=== PATIENT | female | born 1970 | race Two or more races ===

== ENCOUNTER 2016-08-25 22:11 | Emergency (ER) | payer BC, MEDICAID ==
[~2016-08-25] VITALS: Ht 162.6 cm; Wt 69.9 kg
[~2016-08-25 22:11] MED LIST: ALIGN4 M1 PO; AUGMENTIN 500-1 EACH ORAL; AZITHROMYCIN250 MG ORAL; CARAFATE1 G1 ORAL; CIPROFLOXACIN500 M2 ORAL; IBUPROFEN600 MG ORAL; NAPROSYN375 M1 ORAL; NKM; NORCO 5-325 TA1 EACH ORAL; NORCO 5-325 TA1 EACH PO; OMEPRAZOLE40 M1 ORAL; PHENAZOPYRIDIN200 MG ORAL; PROMETHAZINE-C118 M1 ORAL; ROBAXIN-750750 MG PO; ROBAXIN500 MG PO
[2016-08-25 22:33] VITALS: BP 101/71
[2016-08-25] MEDS ORDERED: GABAPENTIN100 MG ORAL (22:34)
[2016-08-25] MEDS ORDERED: Norco 5mg/325mg tab ORAL ONE (23:15)
[2016-08-25] MEDS ORDERED: TRAMADOL HCL50 MG ORAL (23:27)
--- NOTE | 2016-08-25 23:28 | Emergency Room Report ---
History of Present Illness General Chief Complaint: Pain Source: Patient Present Illness HPI This is a 45-year-old female with history of chronic back pain. She present she complaining of left ankle pain. She said she was in the supermarket and a martinez here the back of her ankle with a shopping cart. This occurred 8 hours ago. She complaining of pain initially and now getting worse. Going up her back. No fever chills but no nausea vomiting. No relief with Motrin. Pain is 10 out of 10. Allergies: Coded Allergies: No Known Allergies (Unverified , 08/25/16) Patient History Past Medical History: see triage record, old chart reviewed Past Surgical History: other Pertinent Family History: none Social History: Denies: smoking Last Menstrual Period: august 06 Now: No Immunizations: other Reviewed Nursing Documentation: PMH: Agreed, PSxH: Agreed Nursing Documentation-PMH Past Medical History: No History, Except For Hx Cardiac Problems: No - herniated disk Hx Cancer: No Hx Gastrointestinal Problems: Yes - gastritis Hx Neurological Problems: No Review of Systems Eye: Denies: blurred vision, eye pain ENT: Denies: ear pain, nose congestion, throat swelling Respiratory: Denies: cough, shortness of breath Cardiovascular: Denies: chest pain, palpitations Gastrointestinal: Denies: abdominal pain, diarrhea, nausea, vomiting Musculoskeletal: Reports: joint pain, Denies: back pain Skin: Denies: rash Neurological: Denies: headache, numbness Endocrine: Denies: increased thirst, increased urine Hematologic/Lymphatic: Denies: easy bruising All Other Systems: negative except mentioned in HPI Physical Exam Vital Signs Date Time Temp Pulse Resp B/P Pulse Ox O2 Delivery O2 Flow Rate FiO2 08/25/16 22:27 98.8 96 16 101/71 98 Room Air vitals normal Sp02 EP Interpretation: reviewed, normal General Appearance: well appearing, no apparent distress, alert Head: normocephalic, atraumatic Eyes: bilateral eye EOMI, bilateral eye PERRL ENT: hearing grossly normal, normal pharynx Neck: full range of motion, supple, no meningismus Respiratory: chest non-tender, lungs clear, normal breath sounds Cardiovascular #1: regular rate, rhythm, no murmur Gastrointestinal: normal bowel sounds, non tender, no mass, no organomegaly, no bruit, non-distended Musculoskeletal: back normal, gait/station normal, normal range of motion, other - Left ankle: She has mild tenderness over the distal insertion of the Achilles. No rupture. Sensation normal. Full range of motion. Psychiatric: mood/affect normal Skin: warm/dry Procedures Splinting Splinting : Consent: Verbal Pre-Made Type: PAOLA wrap Pre-Proc Neuro Vasc Exam: normal Post-Proc Neuro Vasc Exam: normal Patient Tolerated: Well Complications: None Medical Decision Making Diagnostic Impression: Primary Impression: Achilles tendon sprain Qualified Codes: S86.012A - Strain of left Achilles tendon, initial encounter ER Course She present with tenderness of the Achilles tendon. Clinically no rupture. X- ray negative. We'll discharge home. Other X-Ray Diagnostic Results Other X-Ray Diagnostic Results : X-Ray ordered: Left ankle x-rays # of Views/Limited Vs Complete: 3 View Indication: Pain EP Interpretation: Yes Interpretation: no dislocation, no soft tissue swelling, no fractures, nonspecific bowel gas Impression: No acute disease Interpreting ER Provider: Electronically signed by Abdulaziz Saucedo MD Last Vital Signs Date Time Temp Pulse Resp B/P Pulse Ox O2 Delivery O2 Flow Rate FiO2 08/25/16 22:27 98.8 96 16 101/71 98 Room Air Status: improved Disposition: HOME, SELF-CARE Condition: Stable Scripts Tramadol Hcl* (ULTRAM*) 50 Mg Tablet 50 MG ORAL Q6H Y for For Pain, #15 TAB 0 Refills Prov: ABDULAZIZ SAUCEDO M.D. 08/25/16 Additional Instructions: Ice pack area. Elevated leg. Use crutches as needed. Followup with your DrGerald in 7 days. Return if worse. ABDULAZIZ SAUCEDO M.D. Aug 25, 2016 23:28
[2016-08-25 23:35] VITALS: BP 105/70
--- NOTE | 2016-08-26 09:26 | Diagnostic Imaging Report ---
Indications: Left ankle trauma, pain Technique: 3 views left ankle. Findings: Comparison: None No fracture, dislocation, joint space widening or effusion , surrounding soft tissue swelling/foreign body/gas, or other acute changes are identified. IMPRESSION: No evidence of acute injury to the left ankle.
== END 2016-08-25 23:35 | disposition home or self-care (01) ==
LOC: EMR 23:00
DX: S86.012A Strain of left Achilles tendon, initial encounter (principal); W22.8XXA Striking against or struck by other objects, initial encounter; Y92.512 Supermarket, store or market as the place of occurrence of the external cause
CPT/HCPCS: 29540; 99283

== ENCOUNTER 2017-02-01 22:41 | Emergency (ER) | payer BC, MEDICAID ==
[~2017-02-01] VITALS: Ht 165.1 cm; Wt 69.9 kg
[~2017-02-01 22:41] MED LIST changes: +GABAPENTIN100 MG ORAL; +TRAMADOL HCL50 MG ORAL
[2017-02-01 22:50] VITALS: BP 113/85
[2017-02-01] MEDS ORDERED: TAMIFLU75 MG ORAL (23:09)
[2017-02-01] MEDS ORDERED: IBUPROFEN600 MG ORAL (23:09)
--- NOTE | 2017-02-01 23:09 | Emergency Room Report ---
History of Present Illness General Chief Complaint: Flu Like Symptoms Source: Patient Present Illness HPI Is a 46-year-old female with no significant past medical history. She presents with chief complaint of fever, cough, joint pain, nausea. Onset last night. Took Tylenol but still having fever. No sick contact. Coughing is nonproductive in nature. Pain is 10 out of 10. Allergies: Coded Allergies: No Known Allergies (Unverified , 08/25/16) Patient History Past Medical History: see triage record, old chart reviewed Past Surgical History: other Pertinent Family History: none Social History: Denies: smoking Last Menstrual Period: jan 24 Now: No : 2 Immunizations: other Reviewed Nursing Documentation: PMH: Agreed, PSxH: Agreed Nursing Documentation-PMH Hx Cardiac Problems: No - herniated disk, heart murmur Hx Cancer: No Hx Gastrointestinal Problems: Yes - gastritis Hx Neurological Problems: No Review of Systems Constitutional: Reports: fever Eye: Denies: eye pain, blurred vision ENT: Denies: ear pain, nose congestion, throat swelling Respiratory: Reports: cough, Denies: shortness of breath Cardiovascular: Denies: chest pain, palpitations Gastrointestinal: Denies: abdominal pain, diarrhea, nausea, vomiting Musculoskeletal: Reports: joint pain, Denies: back pain Skin: Denies: rash Neurological: Denies: headache, numbness Endocrine: Denies: increased thirst, increased urine Hematologic/Lymphatic: Denies: easy bruising All Other Systems: negative except mentioned in HPI Physical Exam Vital Signs Date Time Temp Pulse Resp B/P (MAP) Pulse Ox O2 Delivery O2 Flow Rate FiO2 02/01/17 22:45 99.3 92 18 113/85 98 Room Air vital low-grade fever Sp02 EP Interpretation: reviewed, normal General Appearance: well appearing, no apparent distress, alert Head: normocephalic, atraumatic Eyes: bilateral eye PERRL, bilateral eye EOMI ENT: hearing grossly normal, normal pharynx Neck: full range of motion, supple, no meningismus Respiratory: chest non-tender, lungs clear, normal breath sounds Cardiovascular #1: regular rate, rhythm, no murmur Gastrointestinal: normal bowel sounds, non tender, no mass, no organomegaly, no bruit, non-distended Musculoskeletal: back normal, gait/station normal, normal range of motion Psychiatric: mood/affect normal Skin: warm/dry Medical Decision Making Diagnostic Impression: Primary Impression: Influenza ER Course Patient presents with symptoms consistent with influenza. No evidence of sepsis. We'll go ahead and treat since has only been 24 hours. No evidence of pneumonia. We'll discharge home. Last Vital Signs Date Time Temp Pulse Resp B/P (MAP) Pulse Ox O2 Delivery O2 Flow Rate FiO2 02/01/17 22:45 99.3 92 18 113/85 98 Room Air Status: unchanged Disposition: HOME, SELF-CARE Condition: Stable Scripts Oseltamivir Phosphate (Tamiflu) 75 Mg Capsule 75 MG ORAL TWICE A DAY, #10 CAP Prov: ABDULAZIZ HOOD M.D. 02/01/17 Ibuprofen* (MOTRIN*) 600 Mg Tablet 600 MG ORAL THREE TIMES A DAY, #30 TAB 0 Refills Prov: ABDULAZIZ HOOD M.D. 02/01/17 Patient Instructions: INFLUENZA (Adult) Additional Instructions: Rest. Increase fluid. Return if symptom worsen. Follow up with your DrGerald in 5- 7 days. ABDULAZIZ HOOD M.D. Feb 01, 2017 23:09
[2017-02-01 23:19] VITALS: BP 113/85
[2017-02-01] MEDS ORDERED: GUAIFENESIN-CO118 M1 ORAL (23:22)
== END 2017-02-01 23:23 | disposition home or self-care (01) ==
LOC: EMR 23:04
DX: J11.1 Influenza due to unidentified influenza virus with other respiratory manifestations (principal)
CPT/HCPCS: 99283

== ENCOUNTER 2017-09-28 10:23 | Emergency (ER) | payer BC, MEDICAID ==
[~2017-09-28] VITALS: Ht 165.1 cm; Wt 69.9 kg
[~2017-09-28 10:23] MED LIST changes: +GUAIFENESIN-CO118 M1 ORAL; +TAMIFLU75 MG ORAL
[2017-09-28] MEDS ORDERED: Lidocaine 2% Visc 15ml soln PO ONE (11:15)
[2017-09-28] MEDS ORDERED: Dicyclomine HCl 10mg/5ml oral soln ORAL ONE (11:15)
[2017-09-28] MEDS ORDERED: Mylanta II UD 30ml ORAL ONE (11:15)
--- NOTE | 2017-09-28 11:15 | Emergency Room Report ---
History of Present Illness General Chief Complaint: Abdominal Pain Source: Patient Present Illness HPI This patient c/o fairly severe epigastric pain about 24 hours ago for about 3-4 hours, sharp, severe, constant, resolved. Recurred again about eight hours ago. A/w nausea. No vomiting, no fever, one episode loose bm. No cp, sob, fever, trauma. No dysuria, urgency, hematuria. PMH: GERD many years, takes Omeprazole prn chronic pain right arm related to prior surgery takes Gabapentin prn Allergies: Coded Allergies: No Known Allergies (Unverified , 08/25/16) Patient History Last Menstrual Period: 09/06/2017 Nursing Documentation-PM Past Medical History: No History, Except For Hx Cardiac Problems: Yes - heart murmur, arthritis Hx Cancer: No Hx Gastrointestinal Problems: Yes - GERD Hx Neurological Problems: No Review of Systems Constitutional: Reports: no symptoms Eye: Reports: no symptoms ENT: Reports: no symptoms Respiratory: Reports: no symptoms Cardiovascular: Reports: no symptoms Gastrointestinal: Reports: see HPI, abdominal pain, nausea Genitourinary: Reports: no symptoms Musculoskeletal: Reports: no symptoms Skin: Reports: no symptoms Psychiatric: Reports: no symptoms Neurological: Reports: no symptoms Endocrine: Reports: no symptoms Hematologic/Lymphatic: Reports: no symptoms Allergic: Reports: no symptoms Physical Exam Vital Signs Date Time Temp Pulse Resp B/P (MAP) Pulse Ox O2 Delivery O2 Flow Rate FiO2 09/28/17 10:31 98.2 95 16 124/78 97 Room Air 98.2 Sp02 EP Interpretation: reviewed, normal General Appearance: normal inspection, well appearing, no apparent distress, alert, GCS 15, non-toxic Head: normocephalic, atraumatic Eyes: bilateral eye normal inspection, bilateral eye PERRL, bilateral eye EOMI ENT: normal ENT inspection, hearing grossly normal, normal pharynx, no angioedema, normal voice, moist mucus membranes Neck: normal inspection, full range of motion, supple, no meningismus, no bony tend Respiratory: normal inspection, lungs clear, normal breath sounds, no rhonchi, no respiratory distress, no retraction, no accessory muscle use, no wheezing Cardiovascular #1: normal inspection, regular rate, rhythm, no edema Gastrointestinal: normal inspection, normal bowel sounds, soft, no mass, non- distended, other - mild-moderate epigastric tenderness, no ruq no rlq tenderness Musculoskeletal: gait/station normal, normal range of motion Neurologic: normal inspection, alert, oriented x3, responsive, motor strength/ tone normal Psychiatric: normal inspection, judgement/insight normal, memory normal Suicide Risk Assessment: Suicidal Ideation: No Had intent to initiate attempt: No Pt's plan for suicide attempt: No Has means to complete attempt: No Skin: normal inspection, normal color, no rash, warm/dry Medical Decision Making Diagnostic Impression: Primary Impression: Abdominal pain ER Course I think most likely etiology is gastritis (progression from GERD.) Encouraged patient to take Omeprazole daily for about two weeks then reassess with own MD. Last Vital Signs Date Time Temp Pulse Resp B/P (MAP) Pulse Ox O2 Delivery O2 Flow Rate FiO2 09/28/17 10:31 98.2 95 16 124/78 97 Room Air 98.2 Condition: Improved Scripts Omeprazole (OMEPRAZOLE) 40 Mg Capsule. 40 MG ORAL TWICE A DAY, #30 CAP Prov: Joseph Tucker M.D. 09/28/17 Referrals: NON PHYSICIAN (PCP) Patient Instructions: Abdominal Pain, Adult Joseph Tucker M.D. Sep 28, 2017 11:15
[2017-09-28] MEDS ORDERED: OMEPRAZOLE40 M1 ORAL (11:16)
[2017-09-28 11:56] LABS: HEMATOCRIT 46.5 % (37.0-47.0); HEMOGLOBIN 15.5 G/DL (12.0-16.0); MEAN CORPUSCULAR VOLUME 87 FL (80-99); PLATELET COUNT 235 K/UL (150-450); RED BLOOD COUNT 5.35 M/UL (4.20-5.40); RED CELL DISTRIBUTION WIDTH 10.6 % (11.6-14.8); WHITE BLOOD COUNT 11.7 K/UL (4.8-10.8)
[2017-09-28 12:06] LABS: APPEARANCE,URINE CLEAR; BILIRUBIN, URINE NEGATIVE (NEGATIVE); COLOR,URINE PALE YELLOW; GLUCOSE, URINE (UA) NEGATIVE (NEGATIVE); KETONES,URINE NEGATIVE (NEGATIVE); LEUKOCYTE ESTERASE ,URINE NEGATIVE (NEGATIVE); NITRITE,URINE NEGATIVE (NEGATIVE); PH,URINE 8 (4.5-8.0); PROTEIN,URINE NEGATIVE (NEGATIVE); UROBILINOGEN,URINE NORMAL MG/DL (0.0-1.0)
[2017-09-28 12:10] LABS: ANION GAP 9 mmol/L (5-15); BLOOD UREA NITROGEN 12 mg/dL (7-18); CALCIUM 9.2 MG/DL (8.5-10.1); CARBON DIOXIDE 22 MMOL/L (21-32); CHLORIDE 105 MMOL/L (98-107); CREATININE 0.7 MG/DL (0.55-1.30); POTASSIUM 3.5 MMOL/L (3.5-5.1); SODIUM 136 MMOL/L (136-145)
[2017-09-28 12:14] LABS: ALANINE AMINOTRANSFERASE 29 U/L (12-78); ALBUMIN/GLOBULIN RATIO 1.2 (1.0-2.7); ALKALINE PHOSPHATASE 63 U/L (46-116); ASPARTATE AMINO TRANSFERASE 18 U/L (15-37); BILIRUBIN,TOTAL 0.7 MG/DL (0.2-1.0)
[2017-09-28 14:00] VITALS: BP 127/70
== END 2017-09-28 14:00 | disposition home or self-care (01) ==
LOC: EMR 10:55
DX: R10.13 Epigastric pain (principal); K21.9 Gastro-esophageal reflux disease without esophagitis; M19.90 Unspecified osteoarthritis, unspecified site; R01.1 Cardiac murmur, unspecified
CPT/HCPCS: 36415; 80053; 81001; 83690; 84702; 85007; 85025; 96361; 96374; 96375; 99284; J2405; S0028

== ENCOUNTER 2018-02-09 21:51 | Emergency (ER) | payer MEDICAID ==
[~2018-02-09] VITALS: Ht 165.1 cm; Wt 69.9 kg
[2018-02-09 22:15] VITALS: BP 122/86
[2018-02-09] MEDS ORDERED: AMOXICILLIN500 MG ORAL (22:43)
--- NOTE | 2018-02-09 22:43 | Emergency Room Report ---
History of Present Illness General Chief Complaint: Pain Source: Patient Present Illness HPI This is a 47-year-old female with history of chronic pain taking tramadol, gabapentin and Belbuca. She presents with chief complaint of dental pain. She had a root canal done yesterday. After the numbing medication wore off she asked for severe pain. Pain is 10 out of 10. No relief with her medication. No swelling. Denies any fever chills but denies any nausea vomiting. Nothing made it better. Nothing made it worse. She caught dentist to recommend that she follow up tomorrow for extraction. She says she can't wait until then. Allergies: Coded Allergies: No Known Allergies (Unverified , 08/25/16) Patient History Past Medical History: see triage record, old chart reviewed Past Surgical History: none Pertinent Family History: none Social History: Denies: smoking Last Menstrual Period: FEB 06 Now: No Immunizations: other Reviewed Nursing Documentation: PMH: Agreed; PSxH: Agreed Nursing Documentation-PMH Past Medical History: No Stated History Hx Cardiac Problems: Yes - heart murmur Hx Cancer: No Hx Gastrointestinal Problems: Yes - ACID REFLUX Hx Neurological Problems: No Review of Systems Eye: Denies: eye pain, blurred vision ENT: Denies: ear pain, nose congestion, throat swelling Respiratory: Denies: cough, shortness of breath Cardiovascular: Denies: chest pain, palpitations Gastrointestinal: Denies: abdominal pain, diarrhea, nausea, vomiting Musculoskeletal: Denies: back pain, joint pain Skin: Denies: rash Neurological: Denies: headache, numbness Endocrine: Denies: increased thirst, increased urine Hematologic/Lymphatic: Denies: easy bruising All Other Systems: negative except mentioned in HPI Physical Exam Vital Signs Date Time Temp Pulse Resp B/P (MAP) Pulse Ox O2 Delivery O2 Flow Rate FiO2 02/09/18 22:13 98.4 85 18 122/86 99 Room Air vitals normal Sp02 EP Interpretation: reviewed, normal General Appearance: well appearing, no apparent distress, alert Head: normocephalic, atraumatic Eyes: bilateral eye PERRL, bilateral eye EOMI ENT: hearing grossly normal, normal pharynx, other - Patient points to the left lower third molar is area pain. There is no abscess or redness. Neck: full range of motion, supple, no meningismus Respiratory: chest non-tender, lungs clear, normal breath sounds Cardiovascular #1: regular rate, rhythm, no murmur Gastrointestinal: normal bowel sounds, non tender, no mass, no organomegaly, no bruit, non-distended Musculoskeletal: back normal, gait/station normal, normal range of motion Psychiatric: mood/affect normal Skin: warm/dry Procedures Additional Procedure Procedure Narrative Procedure: Dental block Indication: Dental pain Description: I injected to have cc of 1% lidocaine with epinephrine into the inferior alveolar ridge off the left jaw. No complication. Patient tolerated procedure without a problem. Medical Decision Making Diagnostic Impression: Primary Impression: Pain, dental ER Course Patient presents with dental pain. She says she is taking OxyContin and tramadol for this already. She is also on Belbuca. I see no evidence any abscess. She will need to see a dentist for further evaluation. She has appointment for tomorrow. We'll discharge home with antibiotics. Last Vital Signs Date Time Temp Pulse Resp B/P (MAP) Pulse Ox O2 Delivery O2 Flow Rate FiO2 02/09/18 22:13 98.4 85 18 122/86 99 Room Air Status: improved Disposition: HOME, SELF-CARE Condition: Stable Scripts Amoxicillin* (AMOXIL*) 500 Mg Capsule 500 MG ORAL THREE TIMES A DAY, #21 CAP Prov: Ethan Saucedo MD 02/09/18 Additional Instructions: Follow-up with your dentist tomorrow. Return if symptom worsen. Ethan Saucedo MD Feb 09, 2018 22:43
[2018-02-09 22:50] VITALS: BP 122/86
== END 2018-02-09 22:50 | disposition home or self-care (01) ==
LOC: EMR 22:05
DX: K08.89 Other specified disorders of teeth and supporting structures (principal); G89.29 Other chronic pain
CPT/HCPCS: 99283

== ENCOUNTER 2018-10-19 15:14 | Emergency (ER) | payer MEDICAID, OTHER ==
[~2018-10-19] VITALS: Ht 165.1 cm; Wt 69.9 kg
[~2018-10-19 15:14] MED LIST changes: +AMOXICILLIN500 MG ORAL
[2018-10-19] MEDS ORDERED: NKM (15:24)
[2018-10-19 15:27] VITALS: BP 131/91
--- NOTE | 2018-10-19 15:30 | NUR ---
ED Nurse Note: Patient walked in to ER with a family member from home due to a fall incident. Patient alert and oriented x4 and ambulatory but weak due to Rt knee pain 11/23. skin clean and intact without bruises at this moment. calm and cooperative but crying for the severe pain. no acute distress noted at this time.
--- NOTE | 2018-10-19 15:44 | NUR ---
ED Nurse Note: pt refused urine test as reporting she and her have not had intercourse for more than 1 year and LMP was 10/03/18. at bedside agreed with the information. ERPA made aware. per ERPA, it is ok to give Toradol injection without urine test.
[2018-10-19] MEDS ORDERED: Ketorolac 30mg Inj IM ONE (15:45)
--- NOTE | 2018-10-19 15:46 | NUR ---
ED Nurse Note: pt went down for x-ray in stable condition.
--- NOTE | 2018-10-19 15:53 | Emergency Room Report ---
History of Present Illness General Chief Complaint: Multiple Trauma/Fall Source: Patient, Medical Record Present Illness HPI 47-year-old female c/o joint pain after at the gym. Patient was getting up from gym equipment and did not see metal bar. Tripped over bar and landed on both hands. Pain is 10/10, sharp and throbbing. Denies head injury. LMP October 03. Allergies: Coded Allergies: No Known Allergies (Unverified , 08/25/16) Patient History Past Medical History: other - heart murmur, arthritis Past Surgical History: other - ulnar nerve transplant (RUE) Social History: Denies: smoking, alcohol use, drug use Nursing Documentation-[facility] Past Medical History: No History, Except For Hx Cardiac Problems: Yes - heart murmur Hx Cancer: No Hx Gastrointestinal Problems: Yes - ACID REFLUX Hx Neurological Problems: No Review of Systems All Other Systems: negative except mentioned in HPI Physical Exam Vital Signs Date Time Temp Pulse Resp B/P (MAP) Pulse Ox O2 Delivery O2 Flow Rate FiO2 10/19/18 15:22 98.2 80 16 131/91 (104) 97 Room Air Sp02 EP Interpretation: reviewed, normal Respiratory: chest non-tender, lungs clear, normal breath sounds, speaking full sentences Cardiovascular #1: regular rate, rhythm Musculoskeletal: calf tenderness - right wrist: ecchymosis on volar aspect, good ROM with slight pain. ecchymosis on left thenar eminence. diffuse tenderness to left hip, right knee, and lateral inferior aspect of right ankle. , other - right wrist Medical Decision Making PA Attestation This patient was seen under the direct supervision of Dr. Sanchez who directed all aspects of care and diagnostic interpretation. ER Course ED course HPI: 47 yo female c/o multiple joint pain s/p fall at gym. Denies head injury. Ddx: Arthritis, contusion, fracture, strain HPI & PE consistent with: Contusion, Fall Orders/ Interventions: Multiple x-rays ordered. Right knee x-ray shows possible small suprapatellar effusion. X-ray of the right ankle, left hand, pelvis/ left hip and right wrist are negative. Diagnostic imaging interpreted by radiology. Kar wrap to right knee placed, NV intact. Patient medicated with Toradol 30mg IM, with improvement of pain. Disposition: Patient is stable for discharge home. Patient has prescription for Tylenol 3 at home. Rest, ice 20 minutes aday for 3x a day,compress (keep it wrapped), and elevate at least 30 minute a day. Modified daily activities, limit use of injured extremity. Followup with PCP in 2 days or return to ER if worsening symptoms, new symptoms or sudden change in condition. Please note that this Emergency Department Report was dictated using [employer] technology software, occasionally this can lead to erroneous entry secondary to interpretation by the dictation equipment. Other X-Ray Diagnostic Results Other X-Ray Diagnostic Results #1: X-Ray ordered: right knee # of Views/Limited Vs Complete: 3 View Indication: Swelling EP Interpretation: Yes PA Xray: Interpretation reviewed Interpretation: no dislocation, no fractures Impression: Other - possible small suprapatellar effusion. No acute bony trauma. Other X-Ray Diagnostic Results #2: X-Ray ordered: Right ankle # of Views/Limited Vs Complete: 3 View Indication: Pain EP Interpretation: Yes PA Xray: Interpretation reviewed Interpretation: no dislocation, no fractures Impression: No acute disease Other X-Ray Diagnostic Results #3: X-Ray ordered: left hand # of Views/Limited Vs Complete: 3 View Indication: Pain EP Interpretation: Yes PA Xray: Interpretation reviewed Interpretation: no dislocation, no fractures Impression: No acute disease Other X-Ray Diagnostic Results #4: X-Ray ordered: left hip and pelvis # of Views/Limited Vs Complete: 2 View Indication: Pain EP Interpretation: Yes PA Xray: Interpretation reviewed Interpretation: no dislocation, no fractures Impression: No acute disease Other X-Ray Diagnostic Results #5: X-Ray ordered: right wrist # of Views/Limited Vs Complete: 3 View Indication: Pain EP Interpretation: Yes PA Xray: Interpretation reviewed Interpretation: no dislocation, no fractures Impression: No acute disease Last Vital Signs Date Time Temp Pulse Resp B/P (MAP) Pulse Ox O2 Delivery O2 Flow Rate FiO2 10/19/18 15:27 80 16 Room Air 10/19/18 15:27 98.2 131/91 97 Disposition: HOME, SELF-CARE Condition: Improved Referrals: [facility],REFERRING (PCP) Patient Instructions: Contusion, [id number] Additional Instructions: Followup with PCP in 2 days or return to ED if worsening symptoms, new symptoms , or sudden change in condition. Pro Driscoll Oct 19, 2018 15:53
--- NOTE | 2018-10-19 16:06 | NUR ---
ED Nurse Note: pt came back from x-ray in stable condition.
--- NOTE | 2018-10-19 16:24 | Diagnostic Imaging Report ---
Indication: Knee pain, status post fall Technique: 3 views of the right knee Comparison: None Findings: There may be a small amount of suprapatellar joint fluid. No definite acute fractures. No dislocations. The joint spaces are preserved Impression: Possible small suprapatellar effusion. No acute bony trauma
--- NOTE | 2018-10-19 16:25 | Diagnostic Imaging Report ---
Indication: Pain, status post fall Technique: One view the pelvis, 2 views of the left hip Comparison: none Findings: No acute fractures. No dislocations. The joint spaces are preserved. Impression: Negative
--- NOTE | 2018-10-19 16:26 | Diagnostic Imaging Report ---
Indication: Ankle pain, status post fall Technique: 3 views of the right ankle Comparison: none Findings: No acute fractures. No dislocations. The joint spaces are preserved. There is a small plantar spur Impression: Negative
--- NOTE | 2018-10-19 16:27 | Diagnostic Imaging Report ---
Clinical Indication:Right wrist pain, status post fall Technique: 3 views of the ] wrist Comparison: None Findings: No definite acute fractures. No dislocations. The joint spaces are preserved. Impression: No acute bony trauma
--- NOTE | 2018-10-19 16:29 | Diagnostic Imaging Report ---
Indication: Reason For Exam: PAIN Technique: 3 views left hand Comparison: none Findings: There is a flexion deformity of the fifth proximal interphalangeal joint noted. No acute fractures. No dislocations. The joint spaces are preserved. Impression: Negative
--- NOTE | 2018-10-19 16:52 | NUR ---
ED Nurse Note: Kar wrap applied on Rt knee and a copy of x-ray results and CD were provided.
[2018-10-19 16:55] VITALS: BP 131/91
--- NOTE | 2018-10-19 16:55 | NUR ---
ED Nurse Note: Pt cleared by health care Provider for discharge. DC instructions/prescription was given and explained to pt and verbalized understanding of teachings. All medical deviecs such as ID band removed. Pt is AAO x4, ambulatory and left with all personal belongings.
== END 2018-10-19 16:55 | disposition home or self-care (01) ==
LOC: EMR 15:35
DX: M19.90 Unspecified osteoarthritis, unspecified site (principal); S60.211A Contusion of right wrist, initial encounter; M25.461 Effusion, right knee; M25.552 Pain in left hip; M79.642 Pain in left hand; R01.1 Cardiac murmur, unspecified; K21.9 Gastro-esophageal reflux disease without esophagitis; W18.01XA Striking against sports equipment with subsequent fall, initial encounter; Y93.B9 Activity, other involving muscle strengthening exercises; Y92.39 Other specified sports and athletic area as the place of occurrence of the external cause
CPT/HCPCS: 73110; 73130; 73502; 73562; 73610; 96372; 99284; J1885

== ENCOUNTER 2018-11-10 13:50 | Emergency (ER) | payer OTHER ==
[~2018-11-10] VITALS: Ht 165.1 cm; Wt 70.8 kg
[2018-11-10 14:04] VITALS: BP 120/82
[2018-11-10] MEDS ORDERED: Methocarbamol 500mg tab ORAL ONE (14:15)
[2018-11-10] MEDS ORDERED: Ketorolac 30mg Inj IM ONE (14:15)
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
[2018-11-10] MEDS ORDERED: IBU800 MG PO (14:46)
[2018-11-10] MEDS ORDERED: ROBAXIN-500MG ORAL (14:46)
[2018-11-10 14:51] VITALS: BP 120/82
--- NOTE | 2018-11-10 14:53 | NUR ---
ER DISCHARGE NOTE:soft necl jluis was placed, pain meds given and x-rays done Patient is cleared to be discharged per ERMD, pt is aox4, on room air, with stable vital signs. pt was given dc and prescription instructions, pt was able to verbalize understanding, pt is able to ambulate with steady gait. pt took all belongings.
--- NOTE | 2018-11-10 15:06 | Diagnostic Imaging Report ---
Indication: Neck Pain Findings: 3 views of the cervical spine were obtained. No definite fracture or malalignment identified. There is narrowing of the C5-C6 and C6-7 discs and associated endplate osteophyte formation. Open-mouth view is negative. IMPRESSION: Degenerative disease of the cervical spine
== END 2018-11-10 15:00 | disposition home or self-care (01) ==
LOC: EMR 14:13
DX: S13.4XXA Sprain of ligaments of cervical spine, initial encounter (principal); S30.1XXA Contusion of abdominal wall, initial encounter; R01.1 Cardiac murmur, unspecified; K21.9 Gastro-esophageal reflux disease without esophagitis; G56.91 Unspecified mononeuropathy of right upper limb; V43.62XA Car passenger injured in collision with other type car in traffic accident, initial encounter; Y92.410 Unspecified street and highway as the place of occurrence of the external cause
CPT/HCPCS: 72040; 96372; J1885; Z7502; 99283

== ENCOUNTER 2018-12-29 10:27 | Emergency (ER) | payer OTHER ==
[~2018-12-29] VITALS: Ht 165.1 cm; Wt 69.9 kg
[~2018-12-29 10:27] MED LIST changes: +IBU800 MG PO; +ROBAXIN-500MG ORAL
[2018-12-29] MEDS ORDERED: Cyclobenzaprine 10mg Tab ORAL ONE (10:45)
[2018-12-29] MEDS ORDERED: Ketorolac 60mg Inj IM ONE (10:45)
--- NOTE | 2018-12-29 11:00 | NUR ---
ED Nurse Note: Pt walked in from home. Pt c/o back pain radiating from L shoulder to L hand and neck. Pt alert and orientedx4.
[2018-12-29 11:09] VITALS: BP 110/77
[2018-12-29 11:12] LABS: APPEARANCE,URINE CLEAR; BILIRUBIN, URINE NEGATIVE (NEGATIVE); COLOR,URINE PALE YELLOW; GLUCOSE, URINE (UA) NEGATIVE (NEGATIVE); KETONES,URINE NEGATIVE (NEGATIVE); LEUKOCYTE ESTERASE ,URINE NEGATIVE (NEGATIVE); NITRITE,URINE NEGATIVE (NEGATIVE); PH,URINE 8 (4.5-8.0); PROTEIN,URINE NEGATIVE (NEGATIVE); UROBILINOGEN,URINE NORMAL MG/DL (0.0-1.0)
[2018-12-29] MEDS ORDERED: Dexamethasone 4mg/ml vial IM ONE (12:15)
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
[2018-12-29] MEDS ORDERED: ROBAXIN-500MG ORAL (12:20)
[2018-12-29] MEDS ORDERED: IBU800 MG PO (12:22)
[2018-12-29] MEDS ORDERED: PREDNISONE20 MG ORAL (12:22)
[2018-12-29] MEDS ORDERED: LIDODERM700 M1 TOPIC (12:22)
[2018-12-29 12:32] VITALS: BP 125/80
== END 2018-12-29 12:40 | disposition home or self-care (01) ==
LOC: EMR 11:15
DX: M62.830 Muscle spasm of back (principal); S16.1XXA Strain of muscle, fascia and tendon at neck level, initial encounter; R01.1 Cardiac murmur, unspecified; K21.9 Gastro-esophageal reflux disease without esophagitis
CPT/HCPCS: 81003; 96372; J1100; Z7502; 99283

== ENCOUNTER 2019-07-06 06:01 | Day surgery (SDC) | payer OTHER ==
[2019-07-06] VITALS (15 sets, daily range): BP systolic 107–126; BP diastolic 51–73
[~2019-07-06] VITALS: Ht 165.1 cm; Wt 71.2 kg
[~2019-07-06 06:01] MED LIST changes: +AMBIEN5 MG ORAL; +LIDODERM700 M1 TOPIC; +PREDNISONE20 MG ORAL; +ceFAZolin 1gm IVPB IVPB ONE; +celeBREX 200mg Cap **SURGERY PATIENTS ONLY ORAL ONE; +oxyCONTIN 20mg tab ORAL ONE
--- NOTE | 2019-07-06 07:52 | Operative Note - PDOC ---
Operative Note Operative Note Pre-op Diagnosis: left shoulder adhesive capsilitis, impingement Procedure: see op report Post-op Diagnosis: same as pre-op plus Operative Findings: consistent w/pre-op dx studies Anesthesia: regional Specimen: none Complications: none Condition: stable Estimated Blood Loss: none Implant(s) used?: No Grant Lopez MD July 06, 2019 07:52
--- NOTE | 2019-07-06 07:52 | Pre-Procedure Note/Attestation ---
Pre-Procedure Note/Attestation Complete Prior to Procedure Planned Procedure: left Procedure Narrative: shoulder arthroscopy, lysisi of adhesion, sad Indications for Procedure Pre-Operative Diagnosis: left shoulder adhesive capsilitis, impingement Attestation I attest that I discussed the nature of the procedure; its benefits; risks and complications; and alternatives (and the risks and benefits of such alternatives ), prior to the procedure, with the patient (or the patient's legal account executive sales representative). I attest that, if there was a reasonable possibility of needing a blood transfusion, the patient (or the patient's legal account executive sales representative) was given the [facility] standardized written summary, pursuant to the Shayne Harper Blood Safety Act ([place] Health and Safety Code # 1645, as amended). I attest that I re-evaluated the patient just prior to the surgery and that there has been no change in the patient's H&P, except as documented below: Grant Lopez MD July 06, 2019 07:52
[2019-07-06] MEDS ORDERED: Tylenol #3 tab (300mg/30mg) ORAL PRN (08:00)
[2019-07-06] MEDS ORDERED: HYDROmorphone 1mg/ml Carpuject SUBQ PRN (08:00)
[2019-07-06] MEDS ORDERED: HYDROcodone/Acetamin 5/325 tab ORAL PRN (08:00)
[2019-07-06] MEDS ORDERED: D5 1/2NS 1,000 ML IV SCH (08:00)
[2019-07-06] MEDS ORDERED: Ketorolac 30mg Inj ONE (09:04)
[2019-07-06] MEDS ORDERED: Kenalog-40 1ml Vial ONE ×2 (09:04→10:44)
[2019-07-06] MEDS ORDERED: EPINEPHrine 1mg/1ml Amp ONE (09:04)
[2019-07-06] MEDS ORDERED: Duramorph PF 5mg/10ml amp ONE (09:05)
[2019-07-06] MEDS ORDERED: Bupivacaine 0.25% Inj 30ml INJ ONE (09:05)
[2019-07-06] MEDS ORDERED: Rocuronium Bromide 100mg/10ml Inj IV ONE (09:05)
[2019-07-06] MEDS ORDERED: NS Irrig 1000ml IRRIG ONE ×4 (09:13→10:48)
[2019-07-06] MEDS ORDERED: fentaNYL 100 mcg/2 mL IV ONE (09:18)
--- NOTE | 2019-07-06 09:25 | Anethesia Preoperative Eval ---
Anesthesia Pre-op PMH/ROS General Date of Evaluation: July 06, 2019 Time of Evaluation: 09:45 Anesthesiologist: jl ASA Score: ASA 2 Mallampati Score Class I : Soft palate, uvula, fauces, pillars visible Class II: Soft palate, uvula, fauces visible Class III: Soft palate, base of uvula visible Class IV: Only hard plate visible Mallampati Classification: Class II Surgeon: cristian Diagnosis: shoulder pain Surgical Procedure: Right shoulder arthroscopy Anesthesia History: none, other - tremendous amount of pain during induction? Family History: no anesthesia problems Allergies: Coded Allergies: No Known Allergies (Unverified , 07/06/19) Medications: see eMAR Patient NPO?: Yes NPO Date: July 06, 2019 NPO Time: 00:01 Past Medical History Cardiovascular: Denies: HTN, CAD, [place], valve dz, arrhythmia, other Pulmonary: Denies: asthma, COPD, [place], other Gastrointestinal/Genitourinary: Denies: GERD, CRI, ESRD, other Neurologic/Psychiatric: Reports: depression/anxiety; Denies: dementia, CVA, TIA, other Endocrine: Denies: DM, hypothyroidism, steroids, other HEENT: Denies: cataract (L), cataract (R), glaucoma, [place] (L), [place] (R), other Musculoskeletal/Integumentary: Reports: OA, other - chronic pain; right ulnar neuropathy from previous surgery in 2016. Right leg pain Anesthesia Pre-op Phys. Exam Physician Exam Last Vital Signs Date Time Temp Pulse Resp B/P (MAP) Pulse Ox O2 Delivery O2 Flow Rate FiO2 07/06/19 06:46 Room Air 07/06/19 06:45 98.2 81 18 123/73 98 Constitutional: NAD Neurologic: CN 2-12 intact Cardiovascular: RRR Respiratory: CTA Gastrointestinal: S/NT/ND Airway Exam Mallampati Classification 2 Mallampati Score: Class II MO: full ROM: full Dentures: no upper, no lower Anesthesia Pre-op A/P Labs Urine Test Test 07/06/19 06:05 Urine HCG, Qualitative Negative (NEGATIVE) Risk Assessment & Plan Assessment: covid 19 - neg; denies cp; sob Plan: general; Peripherall nerve bloc Status Change Before Surgery: No Pre-Antibiotics Drug: ancef Given Within 1 Hr of Incision: Yes Time Given: 09:00 Christina Steele CRNA July 06, 2019 09:25
[2019-07-06] MEDS ORDERED: LR 1000ml ONE (09:30)
[2019-07-06] MEDS ORDERED: fentaNYL 100 mcg/2 mL IV PRN (09:30)
[2019-07-06] MEDS ORDERED: Labetalol 5mg/ml 20ml vial IV PRN (09:30)
[2019-07-06] MEDS ORDERED: Acetaminophen (Non formulary) 100 ML IV ONE (09:30)
[2019-07-06] MEDS ORDERED: LORazepam Inj 2mg/ml 1ml IV PRN (09:30)
[2019-07-06] MEDS ORDERED: DiphenhydrAMINE 50mg/ml Inj IVP PRN (09:30)
[2019-07-06] MEDS ORDERED: Hydromorphone 0.5mg/0.5ml inj IVP PRN (09:30)
[2019-07-06] MEDS ORDERED: Metoclopramide 10mg/2ml Inj IVP PRN (09:30)
[2019-07-06] MEDS ORDERED: Sterile Water Irrig 1000ml IRRIG ONE (09:30)
[2019-07-06] MEDS ORDERED: Lidocaine 1% MPF 10mg/ml 5ml ONE (10:26)
[2019-07-06] MEDS ORDERED: Ropivacaine 5mg/ml Vial 20ml INJ ONE (10:26)
--- NOTE | 2019-07-06 11:31 | Immediate Post-Op Evaluation ---
Immediate Post-Op Evalulation Immediate Post-Op Evalulation Procedure: left shoulder arthroscopy Date of Evaluation: July 06, 2019 Time of Evaluation: 11:30 IV Fluids: 600 Blood Pressure Systolic: 125 Blood Pressure Diastolic: 60 Pulse Rate: 80 Respiratory Rate: 14 O2 Sat by Pulse Oximetry: 99 Temperature (Fahrenheit): 97.1 Nausea: No Vomiting: No Complications none Patient Status: awake, reacts, patent Hydration Status: adequate Drug: ancef Given Within 1 Hr of Incision: Yes Time Given: 10:00 Christina Steele CRNA July 06, 2019 11:31
[2019-07-06] MEDS ORDERED: Glycopyrrolate 0.2mg/ml 1ml Vial ONE (12:14)
[2019-07-06] MEDS ORDERED: Neostigmine 1mg/ml 10ml Inj ONE (12:14)
--- NOTE | 2019-07-06 13:22 | 48 Hour Post Anesthesia Eval ---
Post Anesthesia Evaluation Procedure: left shoulder arthroscopy Date of Evaluation: July 06, 2019 Time of Evaluation: 13:21 Blood Pressure Systolic: 119 0: 54 Pulse Rate: 70 Respiratory Rate: 14 Temperature (Fahrenheit): 98.3 O2 Sat by Pulse Oximetry: 98 Airway: patent Nausea: No Vomiting: No Hydration Status: adequate Cardiopulmonary Status: stable Mental Status/LOC: patient returned to baseline Post-Anesthesia Complications: none Follow-up care needed: N/A Christina Steele CRNA July 06, 2019 13:22
--- NOTE | 2019-07-06 18:00 | Operative Note - Dictated ---
DATE OF OPERATION: 07/06/2019 PREOPERATIVE DIAGNOSES: 1. Left shoulder traumatic adhesive capsulitis. 2. Left shoulder impingement syndrome. POSTOPERATIVE DIAGNOSES: 1. Left shoulder traumatic adhesive capsulitis. 2. Left shoulder impingement syndrome. PROCEDURES: 1. Left shoulder arthroscopy, extensive intraarticular debridement. 2. Left shoulder lysis of adhesion and capsular release. 3. Left shoulder subacromial decompression bursectomy. SURGEON: Grant Lopez MD. ANESTHESIA: Interscalene with general. INDICATION: The patient is a pleasant female who has had progressive left shoulder pain. Had difficulty with activities of daily living and restricted range of motion despite conservative treatment. She elected to undergo a left shoulder arthroscopy, capsular release, and subacromial decompression bursectomy. Risks, limitations, expectations, complications of procedure were discussed in detail. All questions addressed. DESCRIPTION OF PROCEDURE: After informed consent was obtained, patient was brought to the operating room. Patient was placed under interscalene general anesthesia. Left shoulder was prepped and draped in a sterile manner. At this time, examination was anesthesia was performed. Forward elevation was about 140, abduction 120, shoulder adduction and external rotation were 70, internal rotation was 45. Careful manipulation under anesthesia was performed to allow full range of motion. The camera was then placed in the glenohumeral joint. There was significant rotator interval, labrum, and articular side of the rotator cuff. Working portal was established. The rotator interval was then released sequentially to make sure labrum, subscap, and biceps tendon were not damaged. Once that was done, the camera was placed through the anterior viewing portal and posterior capsular release was performed. Once that was done, the camera was placed in the subacromial space. Complete bursectomy was performed. Under surface of the acromion was identified. Acromioplasty from lateral to medial was begun and completed from posterior to anterior. Once this was done, complete bursectomy posteriorly was performed. At this point, the instruments were removed. Portal sites were closed with 3-0 Monocryl sutures. Steri-Strips and a sterile dressing were applied. ESTIMATED BLOOD LOSS: None. COMPLICATIONS: None. SPECIMENS: None. IMPLANTS: None. Grant Lopez M.D. DR: VIANCA JOB#: [id number] CC:
== END 2019-07-06 14:50 | disposition home or self-care (01) ==
LOC: SUR 06:01
DX: M75.02 Adhesive capsulitis of left shoulder (principal); M75.42 Impingement syndrome of left shoulder; M19.90 Unspecified osteoarthritis, unspecified site; F32.9 Major depressive disorder, single episode, unspecified; F41.9 Anxiety disorder, unspecified
CPT/HCPCS: 29823; 29825; 81025; 94003; J0131; J0171; J0690; J1885; J2250; J2405; J2704; J2710; J2765; J2795; J3010; J3301; J3490; J7120; 94150

== ENCOUNTER 2020-03-02 13:51 | Emergency (ER) | payer OTHER ==
[~2020-03-02] VITALS: Ht 165.1 cm; Wt 71.7 kg
[~2020-03-02 13:51] MED LIST changes: -ceFAZolin 1gm IVPB IVPB ONE; -celeBREX 200mg Cap **SURGERY PATIENTS ONLY ORAL ONE; -oxyCONTIN 20mg tab ORAL ONE
--- NOTE | 2020-03-02 14:01 | NUR ---
ED Nurse Note: pt presents to ED c/o L groin abscess x 1 week. pt reports that it started as a pimple that she tried to pop it. she went to an urgent care yesterday and they treated her with keflex which she started taking today and an abx shot but it has not improved. she reports the pain now radiates down her leg from the abscess. she describes it as a "large open sore," pt denies fevers or chills
[2020-03-02 14:03] VITALS: BP 127/89
[2020-03-02] MEDS: Tylenol #3 tab (300mg/30mg) ORAL ONE ×2 (14:13→14:36)
[2020-03-02] MEDS ORDERED: Ketorolac 30mg Inj IM ONE (14:15)
[2020-03-02] MEDS ORDERED: Lidocaine 1% Plain 30 ml INJ ONE (14:15)
--- NOTE | 2020-03-02 14:17 | NUR ---
ED Nurse Note: pt refusing tylenol with codeine at this time, states that codeine makes her itchy. JAMIL Daigle notified. medication wasted with Ava Monroe RN per hospital policy.
--- NOTE | 2020-03-02 14:40 | NUR ---
ED Nurse Note: wound cleaned and dressed per PA instruction
--- NOTE | 2020-03-02 14:44 | Emergency Room Report ---
History of Present Illness General Chief Complaint: Skin Rash/Abscess Present Illness HPI 49-year-old female with no signal past medical history here complaining of a painful mass left labia. Patient went to an urgent care yesterday was given Keflex and a shot of antibiotic. No I&D was performed. Obvious abscess noted to left labia. Patient rates the pain 10 out of 10. Has been taking ibuprofen 800 with minimal relief. Also complains of vaginal pruritus reports that has history of yeast infection especially with antibiotics. Denies any dysuria hematuria. Denies fever and chills. Up-to-date with tetanus shot. 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 Patient History Past Medical History: see triage record Past Surgical History: none Pertinent Family History: none Last Menstrual Period: 02/10 Now: No Immunizations: UTD Reviewed Nursing Documentation: PMH: Agreed; PSxH: Agreed Nursing Documentation-PMH Hx Cardiac Problems: Yes - heart murmur Hx Cancer: No Hx Gastrointestinal Problems: Yes Hx Neurological Problems: Yes - '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' Review of Systems All Other Systems: negative except mentioned in HPI Physical Exam Vital Signs Date Time Temp Pulse Resp B/P (MAP) Pulse Ox O2 Delivery O2 Flow Rate FiO2 03/02/20 13:55 98.4 87 18 127/89 (102) 98 Room Air Sp02 EP Interpretation: reviewed, normal General Appearance: no apparent distress, alert, GCS 15, non-toxic Head: normocephalic, atraumatic Eyes: bilateral eye normal inspection, bilateral eye PERRL ENT: no angioedema Neck: supple Respiratory: no retraction, no accessory muscle use Cardiovascular #1: no edema, no murmur Gastrointestinal: soft Genitourinary: no CVA tenderness, other - Abscess left labia Musculoskeletal: back normal Neurologic: alert, motor strength/tone normal, oriented x3, sensory intact, responsive, speech normal Psychiatric: judgement/insight normal, memory normal, mood/affect normal, no suicidal/homicidal ideation Skin: other - abscess left labia Lymphatic: no adenopathy Procedures Incision and Drainage Incision and Drainage : Consent: Verbal Site: Left labia Blade Size: 11 I & D Procedure: betadine prep Wound Location: pelvis - left labia Wound's Depth, Shape: superficial Wound Length (cm): 1 Wound Explored: clean Anesthesia: 1% Lidocaine Volume Anesthetic (ccs): 5 Splint Applied?: Yes Sling Applied?: No Patient Tolerated: Well Complications: None Medical Decision Making PA Attestation All my diagnosis and treatment plans were reviewed ad discussed with my supervising physician Dr. Sanchez Diagnostic Impression: Primary Impression: Left genital labial abscess ER Course 49-year-old female with no signal past medical history here complaining of a painful mass left labia. Patient went to an urgent care yesterday was given Keflex and a shot of antibiotic. No I&D was performed. Obvious abscess noted to left labia. Patient rates the pain 10 out of 10. Has been taking ibuprofen 800 with minimal relief. Also complains of vaginal pruritus reports that has history of yeast infection especially with antibiotics. Denies any dysuria hematuria. Denies fever and chills. Up-to-date with tetanus shot. Ddx considered but are not limited to : Cellulitis, superficial infection, abscess Vital signs: are WNL, pt. is afebrile H&PE are most consistent with: Left genital labial abscess ORDERS: Slater 5 for nighttime only ED INTERVENTIONS: Toradol 30, patient refused to take Tylenol 3 due to being allergic to codeine. Incision and drainage performed. DISCHARGE: At this time pt. is stable for d/c to home. Will provide printed patient care instructions, and any necessary prescriptions. Care plan and follow up instructions have been discussed with the patient prior to discharge. Patient to continue taking Keflex and ibuprofen 800, take medication as directed, if worsening symptoms return to the emergency room avoid operating machinery when taking Slater Last Vital Signs Date Time Temp Pulse Resp B/P (MAP) Pulse Ox O2 Delivery O2 Flow Rate FiO2 03/02/20 14:35 98.4 03/02/20 14:03 18 127/89 98 Room Air 03/02/20 13:55 87 Disposition: HOME, SELF-CARE Condition: Stable Scripts Hydrocodone/Acetaminophen 5-325* (HYDROCODONE/ACETAMINOPHEN 5-325*) 1 Each Tablet 1 TAB ORAL QHS PRN for For Pain for 4 Days, #4 TAB 0 Refills Prov: Pilo Jacome 03/02/20 Hydrocodone Bit/Acetaminophen (HYDROCODON-ACETAMINOPHEN 5-300) 1 Each Tablet 1 EACH PO QHS for 4 Days, #4 TAB Prov: Pilo Jacome 03/02/20 Patient Instructions: Abscess Additional Instructions: Continue taking your antibiotic and ibuprofen 800, take medication as directed, follow primary care provider, avoid shaving the area, if worsening symptoms return to the emergency room Pilo Jacome Mar 02, 2020 14:44
[2020-03-02] MEDS ORDERED: HYDROCODON-ACE1 EA18 PO (14:45)
[2020-03-02] MEDS ORDERED: HYDROCODON-ACE1 EA15 ORAL (14:50)
--- NOTE | 2020-03-02 14:50 | NUR ---
ER DISCHARGE NOTE: Patient is cleared to be discharged per ERMD, pt is aox4, on room air, with stable vital signs. pt was given dc and prescription instructions, pt was able to verbalize understanding, pt id band removed. pt is able to ambulate with steady gait. pt took all belongings.
== END 2020-03-02 14:50 | disposition home or self-care (01) ==
LOC: EMR 14:35
DX: N76.4 Abscess of vulva (principal)
CPT/HCPCS: 56405; J1885; J2001; Z7502; 10060; 99283